=== PATIENT | female | born 1970 | race Caucasian/White ===

== ENCOUNTER 2018-08-13 02:49 | Emergency (ER) | payer BC ==
[2018-08-13] MEDS ORDERED: Ondansetron PF 4 MG/2 ML Vial ONE (03:37)
[2018-08-13 03:56] LABS: #Lymphocytes 0.8 thou/uL (1.20-3.40); #Monocytes 0.4 thou/uL (0.11-0.59); #Neutrophils 6.7 thou/uL (1.40-6.50); %Basophils 0.4 % (0.0-1.0); %Lymphocytes 10.3 % (21.0-51.0); %Monocytes 4.6 % (0.0-10.0); %Neutrophils 84.7 % (42.0-75.0); Mean Corpuscular HGB CONC 33.5 g/dL (32.0-36.0); Mean Corpuscular Volume 92.7 fL (78.0-98.0); Mean Platelet Volume 6.6 fL (7.4-10.4); Platelet Count 300 thou/uL (130-400); RBC Distribution Width 10.9 % (11.5-14.5); Red Blood Cell (RBC) Count 4.18 mill/uL (4.20-5.40); White Blood Cell (WBC) Count 7.9 thou/uL (4.8-10.8)
[2018-08-13 04:09] LABS: ALT (SGPT) 22 U/L (8-55); AST (SGOT) 25 U/L (5-34); Albumin 4.1 g/dL (3.5-5.0); Alkaline Phosphatase 59 U/L (40-150); Anion Gap 15 mmol/L (10-20); BUN (Urea Nitrogen) 7 mg/dL (7.0-18.7); Bilirubin, Total 0.4 mg/dL (0.2-1.2); Calc. Creatinine Clearance 0 mL/min (70-130); Calcium 9.6 mg/dL (7.8-10.44); Carbon Dioxide 26 mmol/L (22-29); Chloride 102 mmol/L (98-107); Estimated GFR-MDRD 76; Globulin 3.4 g/dL (2.4-3.5); Glucose 119 mg/dL (70-105); Protein, Total 7.5 g/dL (6.0-8.3); Sodium 139 mmol/L (136-145)
[2018-08-13] MEDS ORDERED: Ketorolac Tromethamine 30 MG/ML VIAL ONE (04:10)
[2018-08-13 04:50] LABS: Bilirubin Negative (Negative); Blood, Urine Trace (Negative); Clarity Clear (Clear); Glucose, Urine (Dipstick) Negative (Negative); Leukocyte Negative (Negative); Nitrite Negative (Negative); Protein, Urine (Dipstick) 30 mg/dL (Neg-Trace); Urobilinogen 0.2 mg/dL (0.2-1.0); pH, Urine 8.5 (5.0-9.0)
[2018-08-13 04:52] LABS: Bacteria/HPF 2+ HPF (None Seen); Hyaline Casts/LPF 0-3 HYALINE CAST LPF (0-3 Hyaline); RBC/HPF 0-3 HPF (0-3); WBC/HPF 0-3 HPF (0-3)
[2018-08-13] MEDS ORDERED: Prochlorperazine 10 MG/2 ML VIAL ONE (05:09)
--- NOTE | 2018-08-13 09:58 | RAD ---
TWO VIEWS CHEST: HISTORY: Cough. FINDINGS: Normal cardiac silhouette. Lungs and pleural spaces are clear. No pneumothorax or osseous abnormali ties. IMPRESSION: No acute cardiopulmonary process. POS: PPP
== END 2018-08-13 05:45 | disposition home or self-care (01) ==
LOC: SCSER 02:49
DX: R11.2 Nausea with vomiting, unspecified (principal); R05 Cough; G43.909 Migraine, unspecified, not intractable, without status migrainosus; R06.2 Wheezing
CPT/HCPCS: 71046; 80053; 81003; 81015; 83605; 85025; 87804; 96361; 96374; 96375; J0780; J1885; J2405